=== PATIENT | male | born 1965 | race Caucasian/White ===

== ENCOUNTER 2018-09-18 05:15 | Emergency (ER) | payer OTHER ==
[2018-09-18] MEDS ORDERED: LORazepam 2 MG/ML SDV IVPUSH ONE (05:25)
[2018-09-18] MEDS ORDERED: HYDROmorphone 0.5 MG/0.5 ML Syringe IVPUSH ONE ×2 (05:25→08:03)
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
[2018-09-18] MEDS: Sodium Chloride 0.9% 10 ML Syringe FLUSH PRN ×2 (05:34→08:11)
[2018-09-18] MEDS ORDERED: Sodium Chloride 0.9% 1,000 ML IV SCH (06:45)
[2018-09-18] MEDS ORDERED: Sodium Chloride 0.9% 1,000 ML IV ONE (07:58)
[2018-09-18] MEDS ORDERED: Iohexol 647 MG/ML 100 ML Bottle IVPUSH ONE (08:22)
--- NOTE | 2018-09-18 09:19 | CT ---
CT cervical spine Technique: Multiple axial sections were obtained from above C1 inferiorly to the top of T2. Reconstructed sagittal and coronal images were reviewed. Comparison: No previous cervical spine imaging is available. Findings: Mild degenerative change is noted between the dens and anterior arch of C1. Degenerative change is scattered throughout the apophyseal joints. Moderate disc space narrowing is noted at C5-C6 with severe disc space narrowing at C6-C7. Anterior osteophytes are noted at C5-C6 and C6-C7 as well as posterior osteophytes at C5-C6 and more prominent posterior osteophytes at C6-C7. Defect is noted within the superior endplate of T2 which is incompletely seen on this exam. Margins of this are sclerotic and this is most likely old. No acute fracture is definitely seen. No abnormal subluxation is appreciated. Reconstructed AP view shows scoliosis within the cervical spine with mild degenerative change within the uncovertebral joints at C5-C6 and C6-C7. Partially visualized fracture within the body of the right scapula is seen. Impression: 1. Mild degenerative change as noted above. 2. Partially visualized fracture within the body of the right scapula. 3. Small defect partially visualized within the superior T2 vertebral endplate. As mentioned above, margins of this are slightly sclerotic and this finding is felt to be old. 3. No acute abnormality is appreciated within the cervical spine. Diagnostic code #3
--- NOTE | 2018-09-18 09:19 | CT ---
CT chest Technique: Multiple axial sections were obtained from above the lung apices inferiorly through the lung bases. Intravenous contrast was refused by the patient. This diminishes great vessel evaluation. Comparison: No prior chest imaging. Findings: Aorta shows mild atherosclerotic calcification. Slightly ectatic ascending aorta is seen with AP dimension of 3.6 cm. Mediastinum and hilar regions show no adenopathy or other abnormality. No pericardial effusion is seen. Mild dependent atelectasis is seen posteriorly within both lung bases. Lungs otherwise are clear. No parenchymal contusion is appreciated. Reconstructed sagittal images of the sternum appear within normal limits. Vertebral body heights are maintained. No discrete rib fracture is appreciated. Right-sided scapular fracture is seen involving the body of the scapula. Minimal displacement is noted. Impression: 1. Minimally displaced fracture involving the body of the right scapula. 2. Other incidental findings. Nothing acute is otherwise seen. Diagnostic code #3 CT abdomen and pelvis Technique: Multiple axial sections were obtained from above the dome of the diaphragm inferiorly through the pubic symphysis. Oral contrast not given. Patient refused intravenous contrast which limits solid organ evaluation. Comparison: No prior abdominal or pelvic imaging. Findings: Low density finding is noted within the right lobe of the liver having Hounsfield unit measurements of a cyst. This measures about 2.3 cm in size. Small amount of fluid is seen around the liver which is seen anteriorly and most likely is subcapsular in location. No additional abnormality is definitely appreciated within the liver. Spleen appears within normal limits. Surgical clips are seen from prior cholecystectomy. Adrenal glands contain no nodule. Pancreas is within normal limits. Kidneys show no hydronephrosis. Nonobstructing stone is noted within both kidneys. Aorta shows atherosclerotic calcification which continues into the iliac vessels. No retroperitoneal adenopathy or mesenteric abnormalities are seen. No pelvic mass or adenopathy is seen. Mild diverticulosis noted within the ascending and sigmoid colon without diverticulitis. Bone window settings show mild degenerative change within the spine. No acute osseous abnormality is appreciated. Impression: 1. Small amount of fluid which appears to be subcapsular in location around the anterior liver. Etiology of this finding is not seen but this may be chronic. Cyst within the right lobe of the liver is also noted. 2. Small nonobstructing calculus within both kidneys. 3. Other incidental findings. No acute abnormality is appreciated. Note: Evaluation of solid organs is difficult due to lack of IV contrast. Diagnostic code #3
[2018-09-18] MEDS ORDERED: Lactated Ringers 1,000 ML IV ONE (09:35)
--- NOTE | 2018-09-18 10:15 | CR ---
Chest and right ribs: Frontal view of the chest was obtained as well as two views of the right ribs. Comparison: No previous study. Minimal atelectasis seen within the left base. Mildly displaced fracture noted within the posterior third right rib. Fracture also noted within the body of the right scapula. No additional fracture is appreciated. Nonobstructing calcification is seen within the right kidney. Surgical clips noted from prior cholecystectomy. Minimal degenerative change scattered within the spine. Impression: 1. Slightly displaced fracture within the posterior right third rib. CT study was reviewed which does show this fracture on the reconstructed coronal images. 2. Fracture within the body of the right scapula again noted. 3. Slight atelectasis and other incidental findings. Diagnostic code #3
--- NOTE | 2018-09-18 10:15 | CT ---
Head CT Technique: Multiple axial sections through the brain were obtained. Intravenous contrast was not utilized. Comparison: No prior intracranial imaging is available. Findings: Ventricles along with basal cisterns and sulci over the convexities are mildly prominent. Previous left-sided craniotomy is noted. Minimal areas of diminished density noted within the periventricular white matter most likely due to minimal small vessel ischemic demyelination change. No other abnormal parenchymal densities are seen. No evidence of intracranial hemorrhage. No midline shift or mass effect is seen. No acute paranasal sinus findings are seen. No acute calvarial abnormality is seen. Impression: 1. Incidental findings as noted above. No acute intracranial abnormality is identified. Diagnostic code #2 I agree with preliminary report from [facility], finalized on 09/18/18, 8:19 AM Central Time
[2018-09-18] MEDS ORDERED: Acetaminophen/oxyCODONE 325-5 MG Tab PO ONE (10:54)
[2018-09-18] MEDS ORDERED: Ketorolac 15 MG/ML SDV IVPUSH ONE (11:45)
== END 2018-09-18 17:35 | disposition home or self-care (01) ==
LOC: JD.ED 05:15
DX: S42.101A Fracture of unspecified part of scapula, right shoulder, initial encounter for closed fracture (principal); Z88.5 Allergy status to narcotic agent; V89.2XXA Person injured in unspecified motor-vehicle accident, traffic, initial encounter
CPT/HCPCS: 36415; 70450; 71101; 71250; 72125; 74176; 80048; 80306; 85025; 96361; 96374; 96375; 96376; 99284; A9270; G0480; J1170; J1885; J2060; J7040; J7120